=== PATIENT | male | born 1940 | race Caucasian/White ===

== ENCOUNTER → 2016-06-30 | Outpatient (CLI) | payer MEDICARE, OTHER | LOC: KOH-I 14:35 | DX: M25.571 Pain in right ankle and joints of right foot (principal) | CPT/HCPCS: 73630 ==

== ENCOUNTER → 2020-12-24 | Outpatient (CLI) | payer MEDICARE, OTHER | LOC: KOH-I 16:12 | DX: M25.512 Pain in left shoulder (principal); M25.522 Pain in left elbow; R93.6 Abnormal findings on diagnostic imaging of limbs | CPT/HCPCS: 73030; 73080 ==